=== PATIENT | female | born 1945 | race Caucasian/White ===

== ENCOUNTER 2020-01-07 06:25 | Day surgery (SDC) | payer OTHER, BC ==
[~2020-01-07] VITALS: Ht 157.5 cm; Wt 63.5 kg
--- NOTE | ~2020-01-07 | O ---
[facility] [place] [address] OPERATIVE REPORT Name: ALVA VAZQUEZ Room #: 150-8 [facility]#: [id number] Admission: 01/07/20 Attend Phys: Dave Carranza MD Discharge: Date of : 47 Report #: [id number] THIS REPORT FOR: cc: Reza Marte MD, Austin T. MD White,Dave Payne MD ~ CC: Reza Carranza DATE OF SERVICE: 01/07/2020 CABANA ATTENDANT: None. PREOPERATIVE DIAGNOSIS: Bilateral upper lid ptosis with superior visual field defects both eyes. POSTOPERATIVE DIAGNOSIS: Bilateral upper lid ptosis with superior visual field defects both eyes. OPERATION PERFORMED: Bilateral upper lid functional ptosis repair. CABANA ATTENDANT: None. ANESTHESIA: Local with IV sedation. COMPLICATIONS: None. INDICATIONS FOR PROCEDURE: This patient has bilateral upper lid ptosis with superior visual field loss both eyes. Visual field testing demonstrates dense superior visual defects. Retesting with the upper lid elevated shows an improvement in visual field loss of over 30% and in excess of 12 degrees. The current procedure is being undertaken in order to improve the patient's visual function. Informed consent was obtained to include but not limited to the risk of loss of vision, bleeding, infection, scarring, failure to improve the problem and need for further surgery, such as adjustment of lid height. DESCRIPTION OF PROCEDURE: The patient was taken to the operating room, where 2% Xylocaine with epinephrine mixed with equal parts of 0.75% Marcaine with Wydase was administered transcutaneously to each upper lid. The patient was then prepped and draped in the usual sterile fashion. An upper lid crease incision was then made bilaterally and the dissection was [facility] [address] [place] [address] OPERATIVE REPORT Name: ALVA VAZQUEZ Room #: 150-8 [facility]#: [id number] Admission: 01/07/20 Attend Phys: Dave Carranza MD Discharge: Date of : 47 Report #: [id number] carried down until the orbital septum was identified. The orbital septum was then cleared and the pre-aponeurotic fat identified. The levator aponeurosis was then disinserted from the anterior surface of the tarsal plate and dissected free in the avascular Flores's muscle plane. The aponeurosis was then advanced and reattached to the anterior surface of the tarsal plate with interrupted mattress 6-0 Novafil sutures on each side, adjusting for height and contour. The redundant aponeurosis was then amputated. The incision was then closed with multiple interrupted 6-0 chromic sutures that were used to recreate an upper lid crease. The skin was closed with a running 6-0 plain gut suture. The wound was then cleaned and dressed with ophthalmic antibiotic ointment followed by a Telfa pad. The patient was transported to the recovery area, having tolerated the procedure well with no anesthesia or operative complications being noted. By: 8 5 Dave Carranza MD /nancy
[~2020-01-07 06:25] MED LIST: CELEBREX 200 M200 M1 PO; FISH OIL 1,2001 EAC3 PO; MAGNESIUM250 M1 PO; NORVASC5 M1 PO; OSTEO BI-FLEX1 EAC1 PO; RESTASIS1 EACH OPHTHALMIC; TRAZODONE HCL50 MG PO; TYLENOL ARTHRI650 MG PO; VITAMIN D325 MC3 PO
[2020-01-07 09:26] VITALS: BP 127/68
== END 2020-01-07 10:12 | disposition home or self-care (01) ==
LOC: OR 06:25 → TBA 08:03 → OR 09:22
DX: H02.413 Mechanical ptosis of bilateral eyelids (principal); H53.462 Homonymous bilateral field defects, left side; H53.461 Homonymous bilateral field defects, right side; I10 Essential (primary) hypertension; M19.90 Unspecified osteoarthritis, unspecified site; F17.210 Nicotine dependence, cigarettes, uncomplicated; Z98.890 Other specified postprocedural states; Z79.899 Other long term (current) drug therapy; Z90.49 Acquired absence of other specified parts of digestive tract; Z98.41 Cataract extraction status, right eye; Z98.42 Cataract extraction status, left eye
CPT/HCPCS: 50010; 50101; 50386; 50398; 51636; 56528; 56531; 70005